=== PATIENT | male | born 1970 | race Caucasian/White ===

== ENCOUNTER → 2023-07-12 | Day surgery (SDC) | payer OTHER ==
[~2023-07-12] MED LIST: ALLOPURINOL100 MG PO; FINASTERIDE5 MG PO; FISH OIL 1,001000 M1 PO; JARDIANCE25 MG PO; LACTATED RINGER'S 1,000 ML ONE; LIDOCAINE HCL 2% LOCAL INJ 5 ML SDV VIAL INJ ONE; MICARDIS80 MG PO; NEURONTIN300 MG PO; PROPOFOL IV EMULSION 50 ML IV ONE
[2023-07-12 12:26] VITALS: TEMP 98
[2023-07-12 12:55] VITALS: BP 130/80; PULSE 64; RESP 16; O2SAT 99
== END | disposition home or self-care (01) ==
LOC: OR 11:02
PROVIDERS: ATTEND Internal Medicine Gastroenterology
DX: Z12.11 Encounter for screening for malignant neoplasm of colon (principal); D12.0 Benign neoplasm of cecum; D12.2 Benign neoplasm of ascending colon; K29.50 Unspecified chronic gastritis without bleeding; K21.00 Gastro-esophageal reflux disease with esophagitis, without bleeding; K44.9 Diaphragmatic hernia without obstruction or gangrene; K64.8 Other hemorrhoids; I10 Essential (primary) hypertension; E11.9 Type 2 diabetes mellitus without complications; N40.0 Benign prostatic hyperplasia without lower urinary tract symptoms; M10.9 Gout, unspecified; G89.29 Other chronic pain; Z88.0 Allergy status to penicillin; Z91.018 Allergy to other foods; Z91.011 Allergy to milk products; Z79.84 Long term (current) use of oral hypoglycemic drugs; Z79.899 Other long term (current) drug therapy
CPT/HCPCS: 36415; 43239; 45380; 45384; 45385; 82948; 88305; 88342; 93005; J2001; J2704; J7121; 45378